=== PATIENT | male | born 1985 | race African-American/Black ===

== ENCOUNTER 2018-08-18 19:16 | Inpatient (IN) | payer MEDICAID, OTHER ==
[~2018-08-18] VITALS: Ht 188 cm; Wt 149.7 kg
--- NOTE | 2018-08-18 19:50 | NUR ---
BBSELF C/C PRESSURE LIKE CP X3 DAYS W/ GENERALIZED BODY PAIN X3 DAYS. C/O "VOMITTING BLOOD X3 DAYS". HX OF SICKLE CELL. UNABLE TO TAKE PILLS. PT SEEN & EVAL'D BY DR. ALFARO. DENIES SOB, DIZZINESS, ARM/JAW PAIN @ THIS TIME. PT REQUESTING DILAUDID & BENADRYL FOR PAIN. 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
[2018-08-18 20:54] LABS: BASOPHILS # (AUTO) 0.1 /CMM (0.0-0.2); BASOPHILS % (AUTO) 0.9 % (0.0-2.0); EOSINOPHILS % (AUTO) 3.3 % (0.0-6.0); HEMATOCRIT 32 % (39-51); HEMOGLOBIN 9.9 g/dL (13.5-17.5); LYMPHOCYTES # (AUTO) 1.4 /CMM (0.8-4.8); LYMPHOCYTES % (AUTO) 24.6 % (20.0-44.0); MEAN CORPUSCULAR HGB CONC 31 g/dl (31.0-36.0); MEAN CORPUSCULAR VOLUME 83 fL (80-96); MONOCYTES # (AUTO) 0.5 /CMM (0.1-1.30); MONOCYTES % (AUTO) 9.2 % (2.0-12.0); NEUTROPHILS # (AUTO) 3.6 /CMM (1.8-8.9); PLATELET COUNT (AUTO) 324 /CMM (150-450); RED BLOOD CELL COUNT(AUTO) 3.85 MIL/uL (4.5-6.0); WHITE BLOOD COUNT (AUTO) 5.7 K/uL (4.3-11.0)
[2018-08-18 20:55] LABS: APPEARANCE,URINE Clear (CLEAR); BILIRUBIN,URINE Negative (NEGATIVE); BLOOD, URINE Negative Ery/uL (NEGATIVE); COLOR,URINE Yellow (YELLOW); KETONES,URINE Negative (NEGATIVE); LEUKOCYTE ESTERASE ,URINE Negative (NEGATIVE); NITRITE, URINE Negative (NEGATIVE); PROTEIN,URINE Negative (NEGATIVE); UGLUCOSE Negative (NEGATIVE); UROBILINOGEN,URINE 0.2 EU/dL (0.2)
[2018-08-18 21:03] LABS: CALCIUM, SERUM 8.5 mg/dL (8.5-10.1); CARBON DIOXIDE 29 mmol/L (21-32); CHLORIDE 101 mmol/L (98-107); CREATININE 0.9 mg/dL (0.6-1.3); GLUCOSE 148 mg/dL (74-106); POTASSIUM 3.3 mmol/L (3.5-5.1); SODIUM SERUM 139 mmol/L (136-145); UREA NITROGEN, BLOOD 12 mg/dL (7-18)
[2018-08-18 21:08] LABS: ALANINE AMINOTRANSFERASE 27 U/L (12-78); ALBUMIN 3.7 g/dL (3.4-5.0); ALKALINE PHOSPHATASE 109 U/L (46-116); ASPARTATE AMINOTRANSFERASE 12 U/L (15-37); BILIRUBIN,DIRECT 0.1 mg/dL (0.0-0.2); BILIRUBIN,TOTAL 0.3 mg/dL (0.2-1.0); TOTAL PROTEIN, SERUM 7.4 g/dL (6.4-8.2)
[2018-08-18] MEDS ORDERED: diphenhydrAMINE HCL 50 MG/ML VIAL ONE (21:23)
[2018-08-18] MEDS ORDERED: IV NS 0.9% 1,000 ML IV PRN (21:26)
--- NOTE | 2018-08-18 21:28 | NUR ---
MEDICATED FOR PAIN PER ERMD ORDER, PT RADHA WELL.
[2018-08-18] MEDS ORDERED: Z GUARD REMEDY 2 OZ OINT TP PRN (21:30)
[2018-08-18] MEDS ORDERED: HYDROCODONE/APAP 5/325MG 1 EACH TABLET PO PRN (21:30)
[2018-08-18] MEDS ORDERED: POTASSIUM CHLORIDE 20 MEQ TAB.PRT.SR PO ONE (21:30)
[2018-08-18] MEDS ORDERED: ONDANSETRON HCL/PF 4 MG/2 ML VIAL IVP PRN (21:30)
[2018-08-18] MEDS ORDERED: diphenhydrAMINE HCL 50 MG/ML VIAL IV ONE (21:30)
[2018-08-18] MEDS ORDERED: ACETAMINOPHEN 325 MG TABLET PO PRN (21:30)
[2018-08-18] MEDS ORDERED: ZOLPIDEM TARTRATE 5 MG TABLET PO PRN (21:30)
[2018-08-18] MEDS ORDERED: NITROGLYCERIN 0.4 MG/TAB BOTTLE SL PRN (21:30)
[2018-08-18] MEDS ORDERED: HYDROMORPHONE INJ 2 MG/ML DISP.SYRIN IV ONE (21:30)
[2018-08-18 21:40] VITALS: BP 146/104
--- NOTE | 2018-08-18 21:57 | NUR ---
PT IS GOING TO TELE 320-2, DX: SICKLE CELL ANEMIA, DR. GARCIA
--- NOTE | 2018-08-18 22:40 | NUR ---
PT REFUSED K DUR, WANTS DILAUDID GIVEN BEFORE HE TAKES MED.
--- NOTE | 2018-08-18 22:56 | NUR ---
REPORT GIVEN TO MAKI GOMEZ FOR CONT OF CARE.
[2018-08-19] MEDS ORDERED: PANTOPRAZOLE 40 MG VIAL IV SCH (09:00)
== END 2018-08-18 23:35 | disposition left against medical advice (07) | DRG 198 ==
LOC: ER 19:20 → TELE 22:41
DX: I24.9 Acute ischemic heart disease, unspecified (principal); K25.4 Chronic or unspecified gastric ulcer with hemorrhage; M86.9 Osteomyelitis, unspecified; D57.1 Sickle-cell disease without crisis; K92.0 Hematemesis; Z86.711 Personal history of pulmonary embolism; Z86.73 Personal history of transient ischemic attack (TIA), and cerebral infarction without residual deficits; Z86.718 Personal history of other venous thrombosis and embolism; I25.2 Old myocardial infarction; I10 Essential (primary) hypertension; K21.9 Gastro-esophageal reflux disease without esophagitis; F31.9 Bipolar disorder, unspecified; Z88.5 Allergy status to narcotic agent; Z88.8 Allergy status to other drugs, medicaments and biological substances; T50.905A Adverse effect of unspecified drugs, medicaments and biological substances, initial encounter; Y92.009 Unspecified place in unspecified non-institutional (private) residence as the place of occurrence of the external cause
CPT/HCPCS: 36415; 71045-TC; 80048-TC; 80076-TC; 80305; 81000-TC; 83605-TC; 84484-TC; 85025-TC; 85730-TC; 87040-TC; 87081-TC; 87086-TC; G0378; G0480; J1200